=== PATIENT | female | born 1995 | race Caucasian/White ===

== ENCOUNTER → 2017-05-28 | Outpatient (CLI) | payer OTHER | LOC: COL.RAD 16:25 | DX: O99.89 Other specified diseases and conditions complicating pregnancy, childbirth and the puerperium (principal); O99.280 Endocrine, nutritional and metabolic diseases complicating pregnancy, unspecified trimester; D72.829 Elevated white blood cell count, unspecified; R10.2 Pelvic and perineal pain; Z3A.00 Weeks of gestation of pregnancy not specified ==